=== PATIENT | female | born 1955 | race Asian ===

== ENCOUNTER 2017-11-18 15:55 | Emergency (ER) | payer MEDICAID ==
[~2017-11-18] VITALS: Ht 170.2 cm; Wt 77.1 kg
[2017-11-18 16:02] VITALS: BP_SYST 157
[2017-11-18] MEDS ORDERED: KETOROLAC TROMETHAMINE 60 MG/2 ML VIAL IM ONE (16:30)
[2017-11-18 16:50] VITALS: BP_SYST 157
== END 2017-11-18 16:50 | disposition home or self-care (01) ==
LOC: SED 15:55
DX: M76.51 Patellar tendinitis, right knee (principal); I10 Essential (primary) hypertension; Z90.49 Acquired absence of other specified parts of digestive tract
CPT/HCPCS: 96372; 99283; J1885